=== PATIENT | female | born 1995 | race Caucasian/White ===

== ENCOUNTER 2017-01-12 21:45 | Emergency (ER) | payer OTHER ==
[~2017-01-12] VITALS: Ht 157.5 cm; Wt 84.7 kg
[2017-01-12] MEDS ORDERED: SEROQUEL12.5 MG PO (22:58)
[2017-01-12 23:29] LABS: BILIRUBIN NEGATIVE; BLOOD NEGATIVE; COLOR YELLOW ((YELLOW)); GLUCOSE (STRIP) NEGATIVE; INTERNAL CONTROL VALID? YES; KETONES NEGATIVE; LEUKOCYTES NEGATIVE; NITRITE NEGATIVE; PROTEIN (STRIP) 30; SPECIFIC GRAVITY 1.023 (1.000-1.030); UROBILINOGEN 0.2 MG/DL (0.2-1.0)
[2017-01-12 23:31] LABS: ADD MIUA? NO; UCUL ADDED? NO
[2017-01-12] MEDS ORDERED: FLEXERIL10 MG PO (23:38)
[2017-01-12] MEDS ORDERED: NAPROSYN500 MG PO (23:38)
[2017-01-12 23:47] VITALS: BP 109/82
== END 2017-01-12 23:47 | disposition home or self-care (01) ==
LOC: EME 21:45 → EXP 21:45
PROVIDERS: Physician Assistant
DX: S39.012A Strain of muscle, fascia and tendon of lower back, initial encounter (principal); X50.0XXA Overexertion from strenuous movement or load, initial encounter; Y93.89 Activity, other specified
CPT/HCPCS: 72100; 81003; 84703; 99281; 99283; J1885

== ENCOUNTER 2017-01-22 22:00 | Emergency (ER) | payer OTHER ==
[~2017-01-22] VITALS: Ht 154.9 cm; Wt 84.8 kg
[~2017-01-22 22:00] MED LIST: FLEXERIL10 MG PO; NAPROSYN500 MG PO; SEROQUEL12.5 MG PO
[2017-01-23 00:11] LABS: HEMATOCRIT 37.2 % (36.0-46.0); MCH 31.5 PG (29.0-34.0); MCHC 34.7 G/DL (30.0-36.0); MEAN PLAT.VOLUME 10.7 uM^3 (9.5-12.4); PLATELET COUNT 272 K/uL (156-360); RBC DIS.WIDTH-CV 11.9 % (11.8-14.6); RBC DIS.WIDTH-SD 39.8 % (39-53); RED BLOOD COUNT 4.09 M/uL (3.80-5.20); WHITE BLOOD COUNT 10.7 K/uL (4.1-10.2)
[2017-01-23 00:27] LABS: CHLORIDE 107 mEq/L (99-109); POTASSIUM 4.2 mEq/L (3.7-5.4); SODIUM 139 mEq/L (136-147)
[2017-01-23 00:29] LABS: GLUCOSE 93 mg/dL (70-99)
[2017-01-23 00:31] LABS: ANION GAP 10 MEQ/L (2-14); TOTAL BILIRUBIN 0.4 mg/dL (0.0-1.0)
[2017-01-23 00:33] LABS: ALKALINE PHOSPHATASE 65 IU/L (3-129); GFR ESTIMATE (CALCULATED) > 59 mL/min/
[2017-01-23 00:34] LABS: UREA NITROGEN (BUN) 9 mg/dL (9-23)
[2017-01-23 00:37] LABS: LIPASE 5 U/L (1.0-51.0)
[2017-01-23 00:43] LABS: QUANTITATIVE HCG 644.7 MIU/ML
[2017-01-23 00:52] LABS: ADD MIUA? NO; BILIRUBIN NEGATIVE; BLOOD NEGATIVE; COLOR COLORLESS ((YELLOW)); GLUCOSE (STRIP) NEGATIVE; KETONES NEGATIVE; LEUKOCYTES NEGATIVE; NITRITE NEGATIVE; PROTEIN (STRIP) NEGATIVE; SPECIFIC GRAVITY 1.003 (1.000-1.030); UCUL ADDED? NO; UROBILINOGEN 0.2 MG/DL (0.2-1.0)
[2017-01-23] MEDS ORDERED: DICLEGIS DR 101 EACH PO (01:21)
[2017-01-23 01:31] VITALS: BP 122/78
== END 2017-01-23 01:34 | disposition home or self-care (01) ==
LOC: EME 22:00 → RME 22:00
PROVIDERS: Physician Assistant
DX: O21.9 Vomiting of pregnancy, unspecified (principal); Z3A.00 Weeks of gestation of pregnancy not specified
CPT/HCPCS: 80053; 81003; 83690; 84702; 85027